=== PATIENT | female | born 1985 | race Caucasian/White ===

== ENCOUNTER 2017-02-23 22:23 | Emergency (ER) | payer BC ==
[2017-02-23 22:38] VITALS: BP 123/78
--- NOTE | 2017-02-23 22:45 | ED.ADGEN ---
Adult General HPI HPI Patient is a 32-year-old woman, history of chronic back pain, who presents to the emergency department with complaint of left ankle and foot pain after a fall. Patient states that her daughter was crossing under her leg, when he became tangled, and patient's ankle "turned", inward, and the patient did fall down onto her buttocks. She denies striking her head or neck, is complaining of pain isolated in the ankle and the lateral aspect of the left foot. She states this occurred about an hour prior to arrival in the emergency department. She was not able to ambulate on the foot after this occurred, and noted increased swelling in the lateral aspect. Denies any pain or injury other locations, no numbness or tingling. Has not taken any medication for pain prior to coming to the ED. Review of Systems Review of Systems Constitutional: Denies fever or chills [] Eyes: Denies change in visual acuity, redness, or eye pain [] HENT: Denies nasal congestion or sore throat [] Respiratory: Denies cough or shortness of breath [] Cardiovascular: No additional information not addressed in HPI [] GI: Denies abdominal pain, nausea, vomiting, bloody stools or diarrhea [] : Denies dysuria or hematuria [] Musculoskeletal: Denies back pain, complaining of pain in the left lower extremity. Left ankle extending into the left foot. Integument: Denies rash or skin lesions [] Neurologic: Denies headache, focal weakness or sensory changes [] Endocrine: Denies polyuria or polydipsia [] Current Medications Current Medications Current Medications Medications (Trade) Dose Ordered [facility] Start Time Stop Time Status Last Admin Dose Admin Naproxen (Naprosyn) 500 mg 1X ONCE 02/23/17 23:00 02/23/17 23:01 DC 02/23/17 22:50 500 MG Allergies Allergies Allergies Coded Allergies Type Severity Reaction Last Updated Verified No Known Allergies Allergy Unknown 02/23/17 Yes Physical Exam Physical Exam Constitutional: Well developed, well nourished, no acute distress, non-toxic appearance. [] HENT: Normocephalic, atraumatic, bilateral external ears normal, oropharynx moist, no oral exudates, nose normal. [] Eyes: PERRLA, EOMI, conjunctiva normal, no discharge. [] Neck: Normal range of motion, no tenderness, supple, no stridor. [] Cardiovascular:Heart rate regular rhythm, no murmur, S1, S2, rubs or gallops. [] Lungs & Thorax: Bilateral breath sounds clear to auscultation, no wheezing, rhonchi, rales. No chest wall crepitus or tenderness. [] Abdomen: Bowel sounds normal, soft, no tenderness, no rebound, rigidity, no guarding, no masses, no pulsatile masses. [] Skin: Warm, dry, no erythema, no rash. [] Extremities: Patient with swelling noted in the lateral aspect of the left lower extremity, significant tenderness extending down to the base of the fifth metatarsal, no bony crepitus, no external signs of trauma, no tenderness palpation in the remainder of the foot or toes, range of motion is intact in the foot, pulses are equal and intact bilaterally. No cyanosis, no clubbing.] Neurologic: Alert and oriented X 3, normal motor function, normal sensory function, no focal deficits noted. [] Psychologic: Affect normal, judgement normal, mood normal. [] Current Patient Data Vital Signs Vital Signs Date Time Temp Pulse Resp B/P (MAP) Pulse Ox O2 Delivery O2 Flow Rate FiO2 02/23/17 22:38 98.7 80 20 97 Room Air EKG EKG Not indicated. [] Radiology/Procedures Radiology/Procedures Left ankle x-ray: Three-view: Soft tissue swelling noted in the lateral aspect, no fracture, subluxation, or other abnormality identified. As interpreted by me. Left foot x-ray: Three-view: No soft tissue or bony abnormalities identified, as interpreted by me. Course & Med Decision Making Course & Med Decision Making Pertinent Labs and Imaging studies reviewed. (See chart for details) Patient with isolated swelling to the lateral aspect of the left ankle. X-rays do not reveal evidence of acute fracture. Due to severity of swelling, a Velcro splint was applied, patient has a walker in the ED, and states that she has a rolling scooter at home, which she can use for support, does not crutches here in the ED. Patient was ambulating without difficulty with a walker in the ED. I did discuss with patient that if symptoms persist that follow-up with orthopedics would be appropriate for additional evaluation of potential ligament injury, patient takes narcotic pain medications and regular basis for her chronic back pain, will continue take his medications as directed, and additionally will use naproxen or Aleve as directed on the packaging for discomfort, also instructed to use ice and elevation. Patient voiced understanding and agreement with plan as stated, aware that if findings are noted on x-ray to be contacted via telephone in the morning, given contact information for Dr. Flanagan of orthopedics, and discharged home in stable condition with plan and precautions as above. Final Impression Final Impression [] Problems: Dragon Disclaimer Dragon Disclaimer This electronic medical record was generated, in whole or in part, using a voice recognition dictation system. Departure: Impression: Primary Impression: High ankle sprain of left lower extremity Disposition: HOME, SELF-CARE Condition: IMPROVED RADHA SALOMON DO Feb 23, 2017 22:45
[2017-02-23] MEDS: NAPROXEN 500 MG TABLET PO ONE (22:50)
--- NOTE | 2017-02-24 08:22 | RAD ---
Left ankle, 3 views, 02/23/2017: History: Swelling and pain after a fall There is moderate soft tissue swelling over the lateral malleolus. No fracture or dislocation is identified. IMPRESSION: No acute bony abnormality is detected. Left foot, 3 views, 02/23/2017: No fracture or dislocation is identified. There is mild subcutaneous edema.
== END 2017-02-23 23:30 | disposition home or self-care (01) ==
LOC: ER 22:23
DX: S93.402A Sprain of unspecified ligament of left ankle, initial encounter (principal); G89.29 Other chronic pain; W19.XXXA Unspecified fall, initial encounter; Y93.89 Activity, other specified; Y99.8 Other external cause status; Y92.89 Other specified places as the place of occurrence of the external cause
CPT/HCPCS: 29515; 73610; 73630; 99284-25